=== PATIENT | female | born 1980 ===

== ENCOUNTER 2018-04-23 02:02 | Outpatient (CLI) | payer OTHER | END 2018-04-23 23:59 | disposition home or self-care (01) | LOC: DIABETIC 02:02 | PROVIDERS: ATTEND Physician Assistant Surgical | DX: N18.2 Chronic kidney disease, stage 2 (mild) (principal); F50.89 Other specified eating disorder; E03.9 Hypothyroidism, unspecified; G43.909 Migraine, unspecified, not intractable, without status migrainosus; E72.10 Disorders of sulfur-bearing amino-acid metabolism, unspecified | CPT/HCPCS: 97802 ==

== ENCOUNTER 2018-04-30 05:00 | Outpatient (CLI) | payer OTHER | END 2018-04-30 23:59 | disposition home or self-care (01) | LOC: DIABETIC 05:00 | PROVIDERS: ATTEND Physician Assistant Surgical | DX: N18.2 Chronic kidney disease, stage 2 (mild) (principal); F55.2 Abuse of laxatives; R63.0 Anorexia; F50.9 Eating disorder, unspecified | CPT/HCPCS: 97802 ==

== ENCOUNTER 2018-05-07 01:43 | Outpatient (CLI) | payer OTHER | END 2018-05-07 23:59 | disposition home or self-care (01) | LOC: DIABETIC 01:43 | PROVIDERS: ATTEND Physician Assistant Surgical | DX: F50.89 Other specified eating disorder (principal); N18.2 Chronic kidney disease, stage 2 (mild); F55.2 Abuse of laxatives; E03.9 Hypothyroidism, unspecified; F31.9 Bipolar disorder, unspecified | CPT/HCPCS: 97802 ==